=== PATIENT | female | born 1955 | race Caucasian/White ===

== ENCOUNTER → 2016-07-22 | Outpatient (CLI) | payer BC, MEDICARE ==
--- NOTE | 2016-07-22 11:03 | XR ---
EXAMINATION TYPE: XR chest 2V DATE OF EXAM: 07/22/2016 10:23 AM COMPARISON: NONE HISTORY: Productive cough for couple of weeks per patient. Upper respiratory infection per order TECHNIQUE: Frontal and lateral views of the chest are obtained. FINDINGS: There is suspicious right basilar opacity confirmed on 2 views. Left lung is clear. No ple ural effusion or pneumothorax is seen bilaterally. The cardiac silhouette size is within normal limit s. Some multilevel spurring in thoracic spine is present. IMPRESSION: Suspicious patchy right lower lobe infiltrate and/or atelectasis.
== END ==
LOC: LABWHC1 09:41
PROVIDERS: ATTEND Internal Medicine
DX: J06.9 Acute upper respiratory infection, unspecified (principal)
CPT/HCPCS: 36415; 71020; 93005

== ENCOUNTER → 2016-08-03 | Outpatient (CLI) | payer BC, MEDICARE ==
[2016-08-03 09:51] LABS: Basophils % (A) 1 %; CH 32.1; CHCM 33.5; Eosinophils # (A) 0.1 k/uL (0-0.7); Eosinophils % (A) 3 %; HCT 42.2 % (34.0-46.0); HDW 2.47; HGB 14.1 gm/dL (11.4-16.0); Luc # (Auto) 0.11; Luc % (Auto) 2; Lymphocytes # (A) 1.9 k/uL (1.0-4.8); Lymphocytes % (A) 34 %; MCH 32.1 pg (25.0-35.0); MCHC 33.3 g/dL (31.0-37.0); MCV 96.4 fL (80.0-100.0); Mean Platelet Volume 6.6; Monocytes # (A) 0.4 k/uL (0-1.0); Monocytes % (A) 7 %; Neutrophils % (A) 54 %; RBC 4.38 m/uL (3.80-5.40); RDW 12.8 % (11.5-15.5); WBC 5.6 k/uL (3.8-10.6); WBC (Perox) 5.59
[2016-08-03 10:16] LABS: ALT 40 U/L (9-52); AST 33 U/L (14-36); Alkaline Phosphatase 83 U/L (38-126); Anion Gap 5 mmol/L; Blood Urea Nitrogen 13 mg/dL (7-17); Carbon Dioxide 29 mmol/L (22-30); Chloride 107 mmol/L (98-107); Cholesterol 148 mg/dL (<200); Glucose 118 mg/dL (74-99); HDL Cholesterol 51 mg/dL (40-60); Non-African American GFR(MDRD) >60 (>60 ml/min/1.73 sqM); Potassium 4.8 mmol/L (3.5-5.1); Sodium 141 mmol/L (137-145); Total Bilirubin 0.6 mg/dL (0.2-1.3); Total Protein 7.5 g/dL (6.3-8.2); Triglycerides 100 mg/dL (<150)
== END | disposition home or self-care (01) ==
LOC: LABWHC1 09:13
PROVIDERS: ATTEND Internal Medicine
DX: E78.4 Other hyperlipidemia (principal); I10 Essential (primary) hypertension
CPT/HCPCS: 36415; 80053; 80061; 85025

== ENCOUNTER → 2016-08-22 | Outpatient (CLI) | payer BC, MEDICARE ==
--- NOTE | 2016-08-27 12:42 | MM ---
Reason for exam: additional evaluation requested from prior study. Last mammogram was performed 1 year and 5 months ago. History: Patient is postmenopausal. Reductions, March 2011. Physical Findings: Nurse did not find any significant physical abnormalities on exam. MG Diagnostic Mammo w CAD JASMINE Bilateral CC and MLO view(s) were taken. Prior study comparison: March 29, 2015, bilateral MG 3d diag mammo w/cad JASMINE. March 28, 2014, bilateral MG diagnostic mammo w CAD JASMINE. There are scattered fibroglandular densities. Stable benign calcifications. Reduction mammoplasty changes seen. No significant new findings when compared with previous films. These results were verbally communicated with the patient and result sheet given to the patient on 08/22/16. ASSESSMENT: Benign, BI-RAD 2 RECOMMENDATION: Routine screening mammogram of both breasts in 1 year.
== END | disposition home or self-care (01) ==
LOC: RADMAMWWP 15:22
PROVIDERS: ATTEND Internal Medicine
DX: Z09 Encounter for follow-up examination after completed treatment for conditions other than malignant neoplasm (principal); Z98.890 Other specified postprocedural states

== ENCOUNTER → 2017-02-07 | Outpatient (CLI) | payer BC, MEDICARE ==
[2017-02-07 10:27] LABS: Basophils % (A) 1 %; CH 32.2; CHCM 33.1; Eosinophils # (A) 0.1 k/uL (0-0.7); Eosinophils % (A) 2 %; HCT 43.8 % (34.0-46.0); HDW 2.42; HGB 14.2 gm/dL (11.4-16.0); Luc # (Auto) 0.08; Luc % (Auto) 1; Lymphocytes # (A) 1.7 k/uL (1.0-4.8); Lymphocytes % (A) 32 %; MCH 31.7 pg (25.0-35.0); MCHC 32.3 g/dL (31.0-37.0); MCV 97.9 fL (80.0-100.0); Mean Platelet Volume 7.2; Monocytes # (A) 0.3 k/uL (0-1.0); Monocytes % (A) 6 %; Neutrophils # (A) 3.2 k/uL (1.3-7.7); Neutrophils % (A) 58 %; RBC 4.47 m/uL (3.80-5.40); RDW 13.3 % (11.5-15.5); WBC 5.4 k/uL (3.8-10.6); WBC (Perox) 5.21
[2017-02-07 10:31] LABS: ALT 47 U/L (9-52); AST 30 U/L (14-36); Alkaline Phosphatase 76 U/L (38-126); Anion Gap 7 mmol/L; Blood Urea Nitrogen 13 mg/dL (7-17); Calcium 9.3 mg/dL (8.4-10.2); Carbon Dioxide 27 mmol/L (22-30); Chloride 107 mmol/L (98-107); Cholesterol 141 mg/dL (<200); Glucose 122 mg/dL (74-99); HDL Cholesterol 50 mg/dL (40-60); Non-African American GFR(MDRD) >60 (>60 ml/min/1.73 sqM); Sodium 141 mmol/L (137-145); Total Bilirubin 0.5 mg/dL (0.2-1.3); Total Protein 7.2 g/dL (6.3-8.2)
== END | disposition home or self-care (01) ==
LOC: LABWHC1 09:38
PROVIDERS: ATTEND Internal Medicine
DX: Z00.00 Encounter for general adult medical examination without abnormal findings (principal); E78.2 Mixed hyperlipidemia; I10 Essential (primary) hypertension; R53.83 Other fatigue
CPT/HCPCS: 36415; 80053; 80061; 84443; 85025

== ENCOUNTER → 2017-11-03 | Outpatient (CLI) | payer BC, MEDICARE ==
--- NOTE | 2017-11-04 08:50 | MM ---
Reason for exam: screening (asymptomatic). Last mammogram was performed 1 year and 2 months ago. History: Patient is postmenopausal. March 2011. Physical Findings: A clinical breast exam by your physician is recommended on an annual basis and results should be correlated with mammographic findings. MG 3D Screening Mammo W/Cad Bilateral CC and MLO view(s) were taken. Prior study comparison: August 22, 2016, bilateral MG diagnostic mammo w CAD JASMINE. March 29, 2015, bilateral MG 3d diag mammo w/cad JASMINE. The breast tissue is almost entirely fat. Benign stable calcifications. No significant changes when compared with prior studies. ASSESSMENT: Benign, BI-RAD 2 RECOMMENDATION: Routine screening mammogram of both breasts in 1 year.
== END | disposition home or self-care (01) ==
LOC: RADMAMWWP 16:25
PROVIDERS: ATTEND Internal Medicine
DX: Z12.31 Encounter for screening mammogram for malignant neoplasm of breast (principal)
CPT/HCPCS: 77063; 77067

== ENCOUNTER → 2018-02-07 | Outpatient (CLI) | payer BC, MEDICARE ==
[2018-02-07 10:52] LABS: Basophils % (A) 1 %; Eosinophils # (A) 0.1 k/uL (0-0.7); Eosinophils % (A) 2 %; HGB 14.7 gm/dL (11.4-16.0); Lymphocytes # (A) 1.8 k/uL (1.0-4.8); Lymphocytes % (A) 32 %; MCH 32.1 pg (25.0-35.0); MCHC 33.5 g/dL (31.0-37.0); Mean Platelet Volume 6.9; Monocytes # (A) 0.3 k/uL (0-1.0); Monocytes % (A) 6 %; Neutrophils # (A) 3.3 k/uL (1.3-7.7); Neutrophils % (A) 58 %; Platelet Count 173 k/uL (150-450); RBC 4.59 m/uL (3.80-5.40); RDW 13.1 % (11.5-15.5); WBC 5.6 k/uL (3.8-10.6)
[2018-02-07 16:56] LABS: Albumin/Globulin Ratio 1.29 (1.20-2.10); Anion Gap 5.5 mmol/L (4.00-12.00); Calcium 9.3 mg/dL (8.7-10.3); Carbon Dioxide 27.5 mmol/L (21.6-31.8); Globulin 3.1 g/dL (2.1-3.7); LDL Cholesterol,Calculated 79.8 mg/dL (0.0-131.0); Potassium 4.5 mmol/L (3.5-5.5); Total Bilirubin 0.5 mg/dL (0.3-1.2); Total Protein 7.1 g/dL (6.2-8.2); VLDL Calculation 18.2 mg/dL (5.00-40.00)
== END | disposition home or self-care (01) ==
LOC: LABWHC1 09:27
PROVIDERS: ATTEND Internal Medicine
DX: Z00.00 Encounter for general adult medical examination without abnormal findings (principal); I10 Essential (primary) hypertension; M85.80 Other specified disorders of bone density and structure, unspecified site
CPT/HCPCS: 36415; 80053; 80061; 82306; 85025

== ENCOUNTER → 2018-03-09 | Outpatient (CLI) | payer BC, MEDICARE ==
--- NOTE | 2018-03-09 22:47 | XR ---
EXAMINATION TYPE: XR chest 2V, XR ribs RT DATE OF EXAM: 03/09/2018 COMPARISON: Chest x-ray July 22, 2016 HISTORY: Chest and right-sided rib pain. TECHNIQUE: Frontal and lateral views of the chest are obtained. A final oblique images of the right- sided ribs are acquired. FINDINGS: Eventration of right hemidiaphragm is redemonstrated. Elevated left hemidiaphragm is noted. There is no focal air space opacity, pleural effusion, or pneumothorax seen. The cardiac silhouette size is upper limits of normal on current study. The osseous structures are intact. Dedicated images of right-sided ribs show no acute displaced right-sided rib fracture. The overlying soft tissue is unremarkable. IMPRESSION: 1. No acute cardiopulmonary process. 2. No acute displaced right-sided rib fractures are seen.
== END ==
LOC: RADXRMAIN 17:39
PROVIDERS: ATTEND Internal Medicine
DX: R07.9 Chest pain, unspecified (principal)
CPT/HCPCS: 71046

== ENCOUNTER → 2019-01-20 | Outpatient (CLI) | payer BC, MEDICARE ==
--- NOTE | 2019-01-21 12:09 | MM ---
Reason for exam: screening (asymptomatic). Last mammogram was performed 1 year and 3 months ago. History: Patient is postmenopausal. March 2011. Physical Findings: A clinical breast exam by your physician is recommended on an annual basis and results should be correlated with mammographic findings. MG 3D Screening Mammo W/Cad Bilateral CC and MLO view(s) were taken. XCCL view(s) were taken of the left breast. Prior study comparison: November 03, 2017, bilateral MG 3d screening mammo w/cad. August 22, 2016, bilateral MG diagnostic mammo w CAD JASMINE. The breast tissue is almost entirely fat. Benign appearing bilateral coarse calcifications. No significant changes when compared with prior studies. ASSESSMENT: Benign, BI-RAD 2 RECOMMENDATION: Routine screening mammogram of both breasts in 1 year.
== END | disposition home or self-care (01) ==
LOC: RADMAMWWP 16:23
PROVIDERS: ATTEND Internal Medicine
DX: Z12.31 Encounter for screening mammogram for malignant neoplasm of breast (principal)
CPT/HCPCS: 77063; 77067

== ENCOUNTER → 2019-10-11 | Outpatient (CLI) | payer BC, MEDICARE ==
--- NOTE | 2019-10-11 22:24 | XR ---
EXAMINATION TYPE: XR lumbosacral spine min 4V DATE OF EXAM: 10/11/2019 COMPARISON: 08/31/2014 HISTORY: M 53.4 below back pain TECHNIQUE: 5 view lumbar spine FINDINGS: There 5 lumbar-type vertebral bodies. Pedicles are intact. There is increasing spondylosis the lumbar spine. Facet degenerative changes are noted bilaterally. No spondylolytic defects are evid ent. There is loss of disc height L5-S1. Vertebral body alignment appears normal. Vertebral body heights a re preserved. IMPRESSION: 1. Degenerative disc change L5-S1. 2. Advancing spondylosis
--- NOTE | 2019-10-11 22:25 | XR ---
EXAMINATION TYPE: XR Hip Bilateral Complete DATE OF EXAM: 10/11/2019 COMPARISON: None HISTORY: Pain TECHNIQUE: Bilateral hips FINDINGS: Minimal narrowing of the joint space may be present. No acute fracture or dislocation is ev ident. IMPRESSION: 1. Mild bilateral hip joint space narrowing. 2. No acute osseous abnormality.
== END | disposition home or self-care (01) ==
LOC: RADXRMAIN 17:10
PROVIDERS: ATTEND Internal Medicine
DX: M51.37 Other intervertebral disc degeneration, lumbosacral region (principal); M47.896 Other spondylosis, lumbar region; M16.0 Bilateral primary osteoarthritis of hip
CPT/HCPCS: 72110; 73521

== ENCOUNTER → 2020-06-30 | Outpatient (CLI) | payer BC, MEDICARE ==
[2020-06-30 11:01] LABS: Basophils # (A) 0.1 k/uL (0-0.2); Basophils % (A) 1 %; Eosinophils # (A) 0.1 k/uL (0-0.7); Eosinophils % (A) 2 %; HCT 42.5 % (34.0-46.0); HGB 14.2 gm/dL (11.4-16.0); Lymphocytes # (A) 1.8 k/uL (1.0-4.8); Lymphocytes % (A) 28 %; MCH 31.7 pg (25.0-35.0); MCHC 33.4 g/dL (31.0-37.0); MCV 95.1 fL (80.0-100.0); Mean Platelet Volume 7.2; Monocytes # (A) 0.4 k/uL (0-1.0); Monocytes % (A) 6 %; Neutrophils % (A) 63 %; Platelet Count 219 k/uL (150-450); RBC 4.47 m/uL (3.80-5.40); RDW 13.2 % (11.5-15.5); WBC 6.4 k/uL (3.8-10.6)
[2020-06-30 13:06] LABS: ALT 17 U/L (4-34); AST 28 U/L (14-36); African American GFR (CKD) >90 (>60 ml/min/1.73 sqM); Albumin 3.8 g/dL (3.5-5.0); Alkaline Phosphatase 78 U/L (38-126); Anion Gap 5 mmol/L; Blood Urea Nitrogen 14 mg/dL (7-17); Calcium 9.7 mg/dL (8.4-10.2); Carbon Dioxide 31 mmol/L (22-30); Chloride 103 mmol/L (98-107); Cholesterol 168 mg/dL (<200); Globulin 3.7 g/dL; Glucose 156 mg/dL (74-99); HDL Cholesterol 48 mg/dL (40-60); LDL Cholesterol,Calculated 99 mg/dL (0-99); Non-African American GFR(CKD) >90 (>60 ml/min/1.73 sqM); Potassium 4.9 mmol/L (3.5-5.1); Sodium 139 mmol/L (137-145); Total Bilirubin 0.6 mg/dL (0.2-1.3); Total Protein 7.5 g/dL (6.3-8.2); Triglycerides 107 mg/dL (<150)
[2020-07-01 01:24] LABS: % Iron Saturation 30.54 (12.00-45.00)
== END | disposition home or self-care (01) ==
LOC: LABWHC1 09:43
PROVIDERS: ATTEND Nurse Practitioner Adult Health
DX: E78.5 Hyperlipidemia, unspecified (principal); K21.9 Gastro-esophageal reflux disease without esophagitis; I10 Essential (primary) hypertension; M54.5 Low back pain
CPT/HCPCS: 36415; 80053; 80061; 82306; 82607; 83540; 83550; 84443; 85025

== ENCOUNTER → 2020-09-12 | Outpatient (CLI) | payer BC, MEDICARE ==
--- NOTE | 2020-09-19 09:11 | MM ---
Reason for exam: screening (asymptomatic). Last mammogram was performed 1 year and 8 months ago. History: Patient is postmenopausal. March 2011. Physical Findings: A clinical breast exam by your physician is recommended on an annual basis and results should be correlated with mammographic findings. MG 3D Screening Mammo W/Cad Bilateral CC and MLO view(s) were taken. Prior study comparison: January 20, 2019, bilateral MG 3d screening mammo w/cad. November 03, 2017, bilateral MG 3d screening mammo w/cad. The breast tissue is almost entirely fat. Scattered benign dystrophic and fat necrosis calcifications. No significant changes when compared with prior studies. ASSESSMENT: Benign, BI-RAD 2 RECOMMENDATION: Routine screening mammogram of both breasts in 1 year.
== END | disposition home or self-care (01) ==
LOC: RADMAMWWP 16:06
PROVIDERS: ATTEND Internal Medicine
DX: Z12.31 Encounter for screening mammogram for malignant neoplasm of breast (principal); Z78.0 Asymptomatic menopausal state
CPT/HCPCS: 77063; 77067

== ENCOUNTER → 2021-10-10 | Outpatient (CLI) | payer MEDICARE, OTHER ==
--- NOTE | 2021-10-12 07:32 | MM ---
Reason for Exam: Screening (asymptomatic). Last mammogram was performed 1 year(s) and 1 month(s) ago. Patient History: Menarche at age 10. First Full-Term at age 18. Postmenopausal. 2004, Bilateral Reduction. 03/2011, Reduction. Risk Values: Catia 5 year model risk: 1.3%. NCI Lifetime model risk: 4.6%. Prior Study Comparison: 11/03/2017 Bilateral Screening Mammogram, [facility]. 01/20/2019 Bilateral Screening Mammogram, [facility]. 09/12/2020 Bilateral Screening Mammogram, [facility]. Tissue Density: The breast tissue is almost entirely fat. Findings: Analyzed By CAD. There is no suspicious group of microcalcifications or new suspicious mass in either breast. Scattered benign dystrophic and fat necrosis calcifications. Overall Assessment: Benign, BI-RAD 2 Management: Screening Mammogram of both breasts in 1 year. A clinical breast exam by your physician is recommended on an annual basis and results should be correlated with mammographic findings. Electronically signed and approved by: Michele Murillo D.O.
== END | disposition home or self-care (01) ==
LOC: RADMAMWWP 16:04
PROVIDERS: ATTEND Internal Medicine
DX: Z12.31 Encounter for screening mammogram for malignant neoplasm of breast (principal); Z78.0 Asymptomatic menopausal state
CPT/HCPCS: 77063; 77067

== ENCOUNTER 2022-10-27 08:34 | Inpatient (IN) | payer MEDICARE, OTHER ==
[2022-10-27] MEDS ORDERED: SODIUM CHLORIDE 0.9% 1,000 ML IV STA (08:40)
[2022-10-27 09:05] LABS: Basophils % (A) 0 %; Eosinophils # (A) 0.2 k/uL (0-0.7); Eosinophils % (A) 2 %; HCT 43.5 % (34.0-46.0); HGB 15.6 gm/dL (11.4-16.0); Lymphocytes # (A) 2.2 k/uL (1.0-4.8); Lymphocytes % (A) 20 %; MCH 34.1 pg (25.0-35.0); Monocytes # (A) 0.4 k/uL (0-1.0); Monocytes % (A) 4 %; Neutrophils # (A) 7.9 k/uL (1.3-7.7); Neutrophils % (A) 74 %; Platelet Count 173 k/uL (150-450); RBC 4.58 m/uL (3.80-5.40); RDW 13.1 % (11.5-15.5); WBC 10.7 k/uL (3.8-10.6)
--- NOTE | 2022-10-27 09:17 | ED ---
General Adult HPI - General Chief complaint: GI Bleed Stated complaint: Poss GI Bleed, N/V Time Seen by Provider: 10/27/22 08:34 Source: patient, EMS, RN notes reviewed Mode of arrival: EMS Limitations: no limitations - History of Present Illness Initial comments: 67-year-old female history of hypertension diabetes hyperlipidemia and Charcot Carmina tooth who presents with complaints of nausea vomiting for past 4 days which should become dark in color and her believes is coffee-ground color. EMS was called she was found to have a blood pressure 60 systolic. She did not initially get response from 500 mL of saline fluid bolus and was subseq uently given a dose of IV epinephrine. Patient's blood pressure did improve to 120/75 was brought here for further evaluation. She states she did have some upper abdominal pain but this has since improved. No diarrhea reported. No fevers chills or sweats. No prior history of GI bleeding no new medication. - Related Data Allergies Allergy/AdvReac Type Severity Reaction Status Date / Time No Known Allergies Allergy Verified 10/27/22 08:46 Review of Systems ROS Statement: Those systems with pertinent positive or pertinent negative responses have been documented in the HPI. ROS Other: All systems not noted in ROS Statement are negative. Past Medical History Past Medical History: Diabetes Mellitus, Hyperlipidemia, Hypertension Additional Past Medical History / Comment(s): CMT History of Any Multi-Drug Resistant Organisms: None Reported Past Surgical History: Orthopedic Surgery Additional Past Surgical History / Comment(s): DNC Past Psychological History: Depression Smoking Status: Never smoker Past Alcohol Use History: None Reported Past Drug Use History: None Reported General Exam - General Exam Comments Initial Comments: Is a well-developed well-nourished awake alert oriented 4 female Limitations: no limitations General appearance: alert, in no apparent distress Head exam: Present: atraumatic, normocephalic, normal inspection Eye exam: Present: normal appearance, PERRL, EOMI. Absent: scleral icterus, conjunctival injection, periorbital swelling ENT exam: Present: mucous membranes dry Neck exam: Present: normal inspection. Absent: tenderness, meningismus, lymphadenopathy Respiratory exam: Present: normal lung sounds bilaterally. Absent: respiratory distress, wheezes, rales, rhonchi, stridor Cardiovascular Exam: Present: regular rate, normal rhythm, normal heart sounds. Absent: systolic murmur, diastolic murmur, rubs, gallop, clicks GI/Abdominal exam: Present: soft, normal bowel sounds. Absent: distended, tende rness, guarding, rebound, rigid Extremities exam: Present: normal capillary refill, other (Atrophy of the lower extremity consistent with CMT). Absent: tenderness, pedal edema, joint swelling, calf tenderness Back exam: Present: normal inspection Neurological exam: Present: alert, oriented X3, CN II-XII intact Psychiatric exam: Present: normal affect, normal mood Skin exam: Present: warm, dry, intact, normal color. Absent: rash Course Vital Signs 10/27/22 08:36 Temperature 97.4 F L Pulse Rate 99 Respiratory 20 Rate Blood Pressure 105/78 O2 Sat by Pulse 97 Oximetry - Reevaluation(s) Reevaluation #1: 10/27/22 12:27 The patient's elevated lactic acid is likely secondary to viral depletion and poor perfusion has no infectious process is immediately identified Medical Decision Making - Medical Decision Making I did discuss findings with the patient family patient will be admitted for IV hydration and surgical consultation. I did discuss case with Dr. Forrester pt. sent in by a medical professional or institution (, PA, CASTINGS TRIMMER, urgent care, hospital, or care home...) When possible be specific @ -No Did you speak to anyone other than the patient for history (EMS, parent, family, police, friend...)? What history was obtained from this source @ -No Did you review nursing and triage notes (agree or disagree)? Why? @ -I reviewed and agree with nursing and triage notes Were old charts reviewed (outside hosp., previous admission, EMS record, old EKG, old radiological studies, urgent care reports/EKG's, care home records)? Report findings @ -No old charts were reviewed Differential Diagnosis (chest pain, altered mental status, abdominal pain women, abdominal pain men, vaginal bleeding, weakness, fever, dyspnea, syncope, headache, dizziness, GI bleed, back pain, seizure, CVA, palpatations, mental health, musculoskeletal)? @ -Gastroenteritis, abdominal pain, bowel obstruction EKG interpreted by me (3pts min.). @ -Not applicable X-rays interpreted by me (1pt min.). @ -Evidence of dilated bowel loop CT interpreted by me (1pt min.). @ -Evidence of early small bowel obstruction] U/S interpreted by me (1pt. min.). @ -None done What testing was considered but not performed or refused? (CT, X-rays, U/S, labs)? Why? @ -None What meds were considered but not given or refused? Why? @ -None Did you discuss the management of the patient with other professionals (professionals i.e. DrOlena, PA, CASTINGS TRIMMER, lab, RT, psych nurse, family welfare social work professor, equipment service engineer, teacher, textile technical officer, case worker)? Give summary @ -Dr. Chapa Was smoking cessation discussed for >3mins.? @ -No Was critical care preformed (if so, how long)? @ -No Were there social determinants of health that impacted care today? How? (Homelessness, low income, unemployed, alcoholism, drug addiction, transportation, low edu. Level, literacy, decrease access to med. care, prison, rehab)? @ -No Was there de-escalation of care discussed even if they declined (Discuss DNR or withdrawal of care, Hospice)? DNR status @ -No What co-morbidities impacted this encounter? (DM, HTN, Smoking, COPD, CAD, Cancer, CVA, ARF, Chemo, Hep., AIDS, mental health diagnosis, sleep apnea, morbid obesity)? @ -Diabetes, hypertension, [id number] Was patient admitted / discharged? Hospital course, mention meds given and route, prescriptions, significant lab abnormalities, going to OR and other pertinent info. @ -hospital course patient was admitted for IV hydration and surgical consultation Undiagnosed new problem with uncertain prognosis? @ -Early small bowel obstruction Drug Therapy requiring intensive monitoring for toxicity (Heparin, Nitro, Insulin, Cardizem)? @ -No Were any procedures done? @ -No Diagnosis/symptom? @ -Small bowel obstruction, intractable nausea vomiting, dehydration Acute, or Chronic, or Acute on Chronic? @ -Acute Uncomplicated (without systemic symptoms) or Complicated (systemic symptoms)? @ -Complicated Side effects of treatment? @ -No Exacerbation, Progression, or Severe Exacerbation? @ -No Poses a threat to life or bodily function? How? (Chest pain, [place], [place], pneumonia, PE, COPD, DKA, ARF, appy, cholecystitis, CVA, Diverticulitis, Homicidal, Suicidal, threat to staff... and all critical care pts) @ -S small bowel obstruction - Lab Data Result diagrams: 10/27/22 08:44 10/27/22 08:44 Lab Results 10/27/22 10/27/22 10/27/22 Range/Units 08:44 08:44 08:44 WBC 10.7 H (3.8-10.6) k/uL RBC 4.58 (3.80-5.40) m/uL Hgb 15.6 (11.4-16.0) gm/dL Hct 43.5 (34.0-46.0) % MCV 95.0 (80.0-100.0) fL MCH 34.1 (25.0-35.0) pg MCHC 36.0 (31.0-37.0) g/dL RDW 13.1 (11.5-15.5) % Plt Count 173 (150-450) k/uL MPV 8.0 Neutrophils % 74 % Lymphocytes % 20 % Monocytes % 4 % Eosinophils % 2 % Basophils % 0 % Neutrophils # 7.9 H (1.3-7.7) k/uL Lymphocytes # 2.2 (1.0-4.8) k/uL Monocytes # 0.4 (0-1.0) k/uL Eosinophils # 0.2 (0-0.7) k/uL Basophils # 0.0 (0-0.2) k/uL PT (9.0-12.0) sec INR (<1.2) APTT (22.0-30.0) sec Sodium 138 (137-145) mmol/L Potassium 4.5 (3.5-5.1) mmol/L Chloride 102 (98-107) mmol/L Carbon Dioxide 23 (22-30) mmol/L Anion Gap 13 mmol/L BUN 16 (7-17) mg/dL Creatinine 0.64 (0.52-1.04) mg/dL Est GFR (CKD-EPI)AfAm >90 (>60 ml/min/1.73 sqM) Est GFR (CKD-EPI)NonAf >90 (>60 ml/min/1.73 sqM) Glucose 141 H (74-99) mg/dL Lactic Ac Sepsis Rflx Plasma Lactic Acid Bam 3.4 H* (0.7-2.0) mmol/L Calcium 9.4 (8.4-10.2) mg/dL Magnesium 1.9 (1.6-2.3) mg/dL Total Bilirubin 1.2 (0.2-1.3) mg/dL AST 34 (14-36) U/L ALT 21 (4-34) U/L Alkaline Phosphatase 77 (38-126) U/L Creatine Kinase 68 (30-135) U/L Total Protein 8.5 H (6.3-8.2) g/dL Albumin 4.1 (3.5-5.0) g/dL Lipase 57 (23-300) U/L Blood Type Blood Type Confirm Blood Type Recheck Bld Type Recheck Status Antibody Screen Spec Expiration Date 10/27/22 10/27/22 10/27/22 Range/Units 09:19 09:20 09:25 WBC (3.8-10.6) k/uL RBC (3.80-5.40) m/uL Hgb (11.4-16.0) gm/dL Hct (34.0-46.0) % MCV (80.0-100.0) fL MCH (25.0-35.0) pg MCHC (31.0-37.0) g/dL RDW (11.5-15.5) % Plt Count (150-450) k/uL MPV Neutrophils % % Lymphocytes % % Monocytes % % Eosinophils % % Basophils % % Neutrophils # (1.3-7.7) k/uL Lymphocytes # (1.0-4.8) k/uL Monocytes # (0-1.0) k/uL Eosinophils # (0-0.7) k/uL Basophils # (0-0.2) k/uL PT (9.0-12.0) sec INR (<1.2) APTT (22.0-30.0) sec Sodium (137-145) mmol/L Potassium (3.5-5.1) mmol/L Chloride (98-107) mmol/L Carbon Dioxide (22-30) mmol/L Anion Gap mmol/L BUN (7-17) mg/dL Creatinine (0.52-1.04) mg/dL Est GFR (CKD-EPI)AfAm (>60 ml/min/1.73 sqM) Est GFR (CKD-EPI)NonAf (>60 ml/min/1.73 sqM) Glucose (74-99) mg/dL Lactic Ac Sepsis Rflx Y Plasma Lactic Acid Bam (0.7-2.0) mmol/L Calcium (8.4-10.2) mg/dL Magnesium (1.6-2.3) mg/dL Total Bilirubin (0.2-1.3) mg/dL AST (14-36) U/L ALT (4-34) U/L Alkaline Phosphatase (38-126) U/L Creatine Kinase (30-135) U/L Total Protein (6.3-8.2) g/dL Albumin (3.5-5.0) g/dL Lipase (23-300) U/L Blood Type A Positive Blood Type Confirm A Positive Blood Type Recheck No Previous Record Bld Type Recheck Status CABO Indicated Antibody Screen NEGATIVE Spec Expiration Date 10/30/2022 - 231910/27/22 Range/Units 09:26 WBC (3.8-10.6) k/uL RBC (3.80-5.40) m/uL Hgb (11.4-16.0) gm/dL Hct (34.0-46.0) % MCV (80.0-100.0) fL MCH (25.0-35.0) pg MCHC (31.0-37.0) g/dL RDW (11.5-15.5) % Plt Count (150-450) k/uL MPV Neutrophils % % Lymphocytes % % Monocytes % % Eosinophils % % Basophils % % Neutrophils # (1.3-7.7) k/uL Lymphocytes # (1.0-4.8) k/uL Monocytes # (0-1.0) k/uL Eosinophils # (0-0.7) k/uL Basophils # (0-0.2) k/uL PT 11.5 (9.0-12.0) sec INR 1.1 (<1.2) APTT 25.2 (22.0-30.0) sec Sodium (137-145) mmol/L Potassium (3.5-5.1) mmol/L Chloride (98-107) mmol/L Carbon Dioxide (22-30) mmol/L Anion Gap mmol/L BUN (7-17) mg/dL Creatinine (0.52-1.04) mg/dL Est GFR (CKD-EPI)AfAm (>60 ml/min/1.73 sqM) Est GFR (CKD-EPI)NonAf (>60 ml/min/1.73 sqM) Glucose (74-99) mg/dL Lactic Ac Sepsis Rflx Plasma Lactic Acid Bam (0.7-2.0) mmol/L Calcium (8.4-10.2) mg/dL Magnesium (1.6-2.3) mg/dL Total Bilirubin (0.2-1.3) mg/dL AST (14-36) U/L ALT (4-34) U/L Alkaline Phosphatase (38-126) U/L Creatine Kinase (30-135) U/L Total Protein (6.3-8.2) g/dL Albumin (3.5-5.0) g/dL Lipase (23-300) U/L Blood Type Blood Type Confirm Blood Type Recheck Bld Type Recheck Status Antibody Screen Spec Expiration Date - Radiology Data Interpreted by me: I did interpret the imaging KUB showed evidence of dilated bowel loops CT abdomen and pelvis showed evidence of early small bowel obstruction dilated bowel loops Disposition Clinical Impression: Small bowel obstruction, Elevated lactic acid level, Dehydration, Intractable nausea and vomiting Disposition: ADMITTED IP TO THIS [facility] Condition: Fair Referrals: Alfred Hamm MD [Primary Care Provider] - 1-2 days Decision Date: 10/27/22 Decision Time: 12:28
[2022-10-27 09:19] LABS: ALT 21 U/L (4-34); AST 34 U/L (14-36); African American GFR (CKD) >90 (>60 ml/min/1.73 sqM); Albumin 4.1 g/dL (3.5-5.0); Alkaline Phosphatase 77 U/L (38-126); Anion Gap 13 mmol/L; Blood Urea Nitrogen 16 mg/dL (7-17); Calcium 9.4 mg/dL (8.4-10.2); Carbon Dioxide 23 mmol/L (22-30); Chloride 102 mmol/L (98-107); Creatine Kinase 68 U/L (30-135); Glucose 141 mg/dL (74-99); Lipase 57 U/L (23-300); Magnesium 1.9 mg/dL (1.6-2.3); Non-African American GFR(CKD) >90 (>60 ml/min/1.73 sqM); Sodium 138 mmol/L (137-145); Total Bilirubin 1.2 mg/dL (0.2-1.3); Total Protein 8.5 g/dL (6.3-8.2)
[2022-10-27 09:21] LABS: Potassium 4.5 mmol/L (3.5-5.1)
--- NOTE | 2022-10-27 09:36 | XR ---
EXAMINATION TYPE: XR KUB DATE OF EXAM: 10/27/2022 9:08 AM INDICATION: Patient age:Female; 67 years old; Reason for study: pain; COMPARISON: None. TECHNIQUE: One radiographic view of the abdomen was obtained. FINDINGS/IMPRESSION: Gaseous dilation of multiple loops of small bowel measuring up to 3.9 cm. Correlate for ileus versus bowel obstruction.
[2022-10-27 09:56] LABS: INR 1.1 (<1.2); Partial Thromboplastin Time 25.2 sec (22.0-30.0); Prothrombin Time 11.5 sec (9.0-12.0)
--- NOTE | 2022-10-27 10:14 | CT ---
EXAMINATION TYPE: CT abdomen pelvis w con CT DLP: 1457.8 mGycm, Automated exposure control for dose reduction was used. DATE OF EXAM: 10/27/2022 10:02 AM COMPARISON: None. CLINICAL INDICATION:Female, 67 years old with history of Abdominal pain, acute, nonlocalized; abd angelika n TECHNIQUE: Axial CT of the abdomen and pelvis. Sagittal and coronal reformats were created on a [employer] workstation. Contrast used:100 mL of Isovue 300 with IV Contrast, (none if empty) Oral contrast used: without Oral Contrast (none if empty) FINDINGS: LOWER CHEST: Unremarkable ABDOMEN LIVER: Unremarkable GALLBLADDER AND BILE DUCTS: Unremarkable. PANCREAS: Unremarkable. SPLEEN: Unremarkable. ADRENAL GLANDS: Unremarkable. KIDNEYS AND URETERS: No evidence of hydronephrosis or renal calculus. The ureters are unremarkable. PELVIS BLADDER: Unremarkable REPRODUCTIVE: Unremarkable. ABDOMEN & PELVIS STOMACH AND BOWEL: Multiple stacking small bowel loops are seen throughout the abdomen the largest me asuring up to 3.4 cm in diameter. Transition point felt to be in the left abdomen where the terminal ileum is relatively nondistended. Series 202 image 32. Stool is seen within the colon. Small hiatal h ernia. PERITONEUM/RETROPERITONEUM: No evidence of pneumoperitoneum or free fluid. VASCULATURE: No evidence of aortic aneurysm. MUSCULOSKELETAL: No acute osseous abnormalities LYMPH NODES: No gross evidence for lymphadenopathy. SOFT TISSUE/ABDOMINAL WALL: Unremarkable IMPRESSION: 1. Suspected early small bowel obstruction with transition point in the left abdomen. Internal herni a not entirely excluded. Consider dedicated small bowel follow-through to rule out complete obstructi on. 2. Colonic diverticulosis. 3. Small hiatal hernia.
[2022-10-27] MEDS ORDERED: FAMOTIDINE 20 MG/2 ML VIAL IV STA (12:17)
[2022-10-27] MEDS ORDERED: ONDANSETRON 4 MG/2 ML VIAL IVP PRN ×2 (12:28→17:48)
[2022-10-27] MEDS ORDERED: NALOXONE 0.4 MG/ML 1 ML VIAL IV PRN (12:28)
[2022-10-27] MEDS: SODIUM CHLORIDE 0.9% 1,000 ML IV SCH ×2 (12:32→21:04)
[2022-10-27 12:55] LABS: Appearance,Urine Clear (Clear); Bilirubin,Urine Negative (Negative); Blood,Urine Negative (Negative); Color,Urine Yellow; Glucose,Urine (UA) Negative (Negative); Ketones,Urine Trace (Negative); Protein,Urine Trace (Negative); Specific Gravity,Urine <1.005 (1.001-1.035)
[2022-10-27 12:56] LABS: Leukocyte Esterase,Urine Negative (Negative); Nitrite,Urine Negative (Negative)
--- NOTE | 2022-10-27 15:52 | P.HPIM ---
History of Present Illness H&P Date: 10/27/22 Patient is a 67-year-old female with history of Trcdibn-Qarma-Uydxv presenting with nausea and vomiting. He started evening, has not had any bowel movements since then. Still passing flatus. She claims that she had a couple bouts of emesis, noted coffee-ground emesis this morning. Has generalized abdominal pain. Denies any fevers, chills, recent travel history. [place] mbulatory at baseline, uses a wheelchair. Has a history of prior abdominal surgeries, related to . In the ED, temperature was 97.4, pulse 99, respiratory rate 20, blood pressure 105/78, saturating at 97% on room air. Laboratory workup showed WBC 10.7, hemoglobin 15.6, sodium 138, potassium 4.5, creatinine 0.64, lactate 3.4, glucose 141. Lipase 57. KUB showed gaseous dilation of multiple loops of small bowel measuring up to 3.[address] abdomen and pelvis showed early small bowel obstruction with transition point in the left abdomen, internal hernia not entirely excluded, colonic diverticulosis, small hiatal hernia. Patient admitted for small bowel obstruction with surgery consult. Pertinent positives and negatives as discussed in HPI, a complete review of systems was performed and all other systems are negative. Patient seen and examined at bedside. Vital signs reviewed General: nontoxic, no distress, appears at stated age Derm: warm, dry Head: atraumatic, normocephalic, symmetric Eyes: EOMI, no lid lag, anicteric sclera, pupils equal round reactive to light ENT: Nose and ears atraumatic Neck: No thyromegaly, supple Mouth: no lip lesion, mucus membranes moist Cardiovascular: S1S2 reg, no murmur, no edema Lungs: clear to auscultation bilateral, no rhonchi, no rales, no wheeze, no accessory muscle use Abdominal: soft, nontender to palpation, no guarding, no appreciable organomegaly Ext: no gross muscle atrophy, muscle strength muscle strength 5 out of 5 in all 4 extremities, no contractures Neuro: CN II-XII grossly intact Psych: Alert, oriented, appropriate affect Assessment/Plan: Small bowel obstruction Coffee-ground emesis Lactic acidosis Leukocytosis, reactive Hx of Charcot shaylee tooth HLD -SBO likely in the setting of internal hernia, surgery consulted -Coffee-ground emesis likely in the setting of multiple bouts of vomiting, gastritis, esophagitis, Paulina-Mullins tear not excluded -Protonix 40 IV twice a day -Continue IV fluids normal saline 1 30 mL an hour -Repeat lactate -Zofran as needed for nausea and vomiting -Home medications will be reviewed and reconciled when available. The patient is admitted with an anticipated greater than 2 midnight stay as inpatient status for evaluation of all bowel obstruction. Surrogate decision-maker: CODE STATUS: Full code DVT prophylaxis: Subcu heparin Anticipated discharge date: Pending clinical course Anticipated discharge place: Pending clinical course A total of 65 minutes was spent on the care of this complex patient more than 50% of the time was spent in counseling and care coordination. Past Medical History Past Medical History: Diabetes Mellitus, Hyperlipidemia, Hypertension Additional Past Medical History / Comment(s): CMT History of Any Multi-Drug Resistant Organisms: None Reported Past Surgical History: Orthopedic Surgery Additional Past Surgical History / Comment(s): DNC Past Anesthesia/Blood Transfusion Reactions: No Reported Reaction Past Psychological History: Depression Smoking Status: Never smoker Past Alcohol Use History: None Reported Past Drug Use History: None Reported - Past Family History Father History Unknown: Yes Mother History Unknown: Yes Medications and Allergies Allergies Allergy/AdvReac Type Severity Reaction Status Date / Time No Known Allergies Allergy Verified 10/27/22 08:46 Physical Exam Vitals: Vital Signs Temp Pulse Pulse Resp BP BP Pulse Ox 10/27/22 14:39 97.9 F 91 16 94/81 96 10/27/22 13:16 97.1 F L 85 18 125/89 97 10/27/22 12:00 78 18 145/68 98 10/27/22 08:36 97.4 F L 99 20 105/78 97 Intake and Output 10/27/22 10/27/22 10/27/22 06:59 14:59 22:59 Other: Weight 61.235 kg Results CBC & Chem 7: 10/27/22 08:44 10/27/22 08:44 Labs: Abnormal Lab Results - Last 24 Hours (Table) 10/27/22 10/27/22 10/27/22 Range/Units 08:44 08:44 08:44 WBC 10.7 H (3.8-10.6) k/uL Neutrophils # 7.9 H (1.3-7.7) k/uL Glucose 141 H (74-99) mg/dL Plasma Lactic Acid Bam (0.7-2.0) mmol/L Total Protein 8.5 H (6.3-8.2) g/dL Urine pH 9.0 H (5.0-8.0) 10/27/22 Range/Units 08:44 WBC (3.8-10.6) k/uL Neutrophils # (1.3-7.7) k/uL Glucose (74-99) mg/dL Plasma Lactic Acid Bam 3.4 H* (0.7-2.0) mmol/L Total Protein (6.3-8.2) g/dL Urine pH (5.0-8.0) Thrombosis Risk Factor Assmnt - Choose All That Apply Each Risk Factor Represents 2 Points: Age 61-74 years Thrombosis Risk Factor Assessment Total Risk Factor Score: 2 Thrombosis Risk Factor Assessment Level: Low Risk
[2022-10-27] MEDS: PANTOPRAZOLE 40 MG/10 ML VIAL IV SCH (21:03)
[2022-10-28] MEDS: SODIUM CHLORIDE 0.9% 1,000 ML IV SCH ×3 (01:36→18:10)
[2022-10-28 08:46] LABS: Basophils # (A) 0.03 X 10*3/uL (0.00-0.10); Basophils % (A) 0.4 %; Eosinophils % (A) 1.3 %; HCT 40.3 % (37.2-46.3); HGB 13.4 d/dL (12.0-15.0); Lymphocytes # (A) 2.38 X 10*3/uL (0.90-5.00); Lymphocytes % (A) 30.4 %; MCH 32.7 pg (27.0-32.0); MCHC 33.3 d/dL (32.0-37.0); MCV 98.3 FL (80.0-97.0); Mean Platelet Volume 10.3 FL (9.5-12.2); Monocytes # (A) 0.56 X 10*3/uL (0.20-1.00); Monocytes % (A) 7.1 %; NRBC Per 100 WBC 0 X 10*3/uL (0.00-0.01); Neutrophils # (A) 4.75 X 10*3/uL (1.80-7.70); Neutrophils % (A) 60.5 %; Platelet Count 152 X 10*3/uL (140-440); RDW 13.5 % (11.5-14.5); WBC 7.84 X 10*3/uL (4.50-10.00)
[2022-10-28] MEDS ORDERED: PANTOPRAZOLE 40 MG/10 ML VIAL IV SCH (09:00)
[2022-10-28] MEDS: PANTOPRAZOLE 40 MG/10 ML VIAL IV SCH ×2 (09:01→20:55)
[2022-10-28 14:03] LABS: BUN/Creat Ratio 19.86 Ratio (12.00-20.00); Blood Urea Nitrogen 13.9 mg/dL (9.0-27.0); Calcium 8.6 mg/dL (8.7-10.3); Carbon Dioxide 21.1 mmol/L (21.6-31.8); Chloride 107 mmol/L (96-109); Glucose 94 mg/dL (70-110); Potassium 3.7 mmol/L (3.5-5.5); Sodium 141 mmol/L (135-145)
--- NOTE | 2022-10-28 14:04 | P.GSCN ---
History of Present Illness Consult date: 10/28/22 History of present illness: CHIEF COMPLAINT: Nausea and vomiting HISTORY OF PRESENT ILLNESS: This is a 67-year-old female who presented to the hospital with nausea vomiting and upper abdominal pain 3 days. The emesis was dark in color concerns for coffee-ground emesis. Last episode of vomiting was yesterday in the ER. Since then further vomiting or nausea. Abdominal pain has resolved. She is having flatus. Last bowel movement was on . She does have a known history of constipation. Past surgical history does include a D&C. Computed tomography scan abdomen and pelvis suspected early small bowel obstruction with transition point in the left abdomen. Internal hernia not entirely excluded. Consider dedicated small bowel follow-through to rule out complete obstruction. Colonic diverticulosis. Small hiatal hernia. Patient reports that she is feeling better. PAST MEDICAL HISTORY: See below PAST SURGICAL HISTORY: See below MEDICATIONS: See below ALLERGIES: See below SOCIAL HISTORY: No illicit drug use. REVIEW OF SYSTEMS: CONSTITUTIONAL: Denies fever or chills. HEENT: Denies blurred vision, vision changes, or eye pain. Denies hemoptysis CARDIOVASCULAR: Denies chest pain or pressure. RESPIRATORY: No shortness of breath. GASTROINTESTINAL: See HPI for pertinent findings HEMATOLOGIC: Denies bleeding disorders. GENITOURINARY: Denies any blood in urine or increased urinary frequency. SKIN: Denies pruitis. Denies rash. PHYSICAL EXAM: VITAL SIGNS: Reviewed GENERAL: Well-developed in no acute distress. ABDOMEN: Soft. Nondistended. Nontender NEUROLOGIC: Alert and oriented. Cranial nerves II through XII grossly intact. LABORATORY DATA: WBC 7.4 HgB 13.4 platelets 152 Sodium 138 potassium 4.5 creatinine 0.64 Lactic acid 3.4-0.9 Urinalysis negative for infection IMAGING: Computed tomography scan as stated above ASSESSMENT: 1. Early small bowel obstruction PLAN: -Start patient on sips of clear liquids -Small bowel follow-through with Gastrografin ordered for morning -Continue supportive care Physician French Binder note has been reviewed by physician. Signing provider agrees with the documented findings, assessment, and plan of care. I have personally seen and examined the patient, reviewed the SOCIAL MEDIA MARKETING ANALYST /PAs history, exam and MDM and agree with the assessment and plan as written. Based on total visit time, I have performed more than 50% of the visit. As above: CAT scan reviewed. Patient does have subtle findings to suggest possible transition point. She feels well. She thinks it was a viral illness. That is still likely the case. Will check small bowel series tomorrow. Continue liquid diet. Past Medical History Past Medical History: Diabetes Mellitus, Hyperlipidemia, Hypertension Additional Past Medical History / Comment(s): CMT History of Any Multi-Drug Resistant Organisms: None Reported Past Surgical History: Orthopedic Surgery Additional Past Surgical History / Comment(s): DNC Past Anesthesia/Blood Transfusion Reactions: No Reported Reaction Past Psychological History: Depression Smoking Status: Never smoker Past Alcohol Use History: None Reported Past Drug Use History: None Reported - Past Family History Father History Unknown: Yes Mother History Unknown: Yes Medications and Allergies Home Medications Medication Instructions Recorded Confirmed Type Aspirin EC [Ecotrin Low Dose] 81 mg PO DAILY 10/27/22 10/27/22 History Cholecalciferol [Vitamin D3 (25 25 mcg PO DAILY 10/27/22 10/27/22 History Mcg = 1000 Iu)] Gabapentin [Neurontin] 200 mg PO HS 10/27/22 10/27/22 History Loperamide [Imodium] 2 mg PO DAILY 10/27/22 10/27/22 History Nortriptyline [Pamelor] 50 mg PO HS 10/27/22 10/27/22 History Oxybutynin Xl [Ditropan XL] 5 mg PO DAILY 10/27/22 10/27/22 History Sertraline [Zoloft] 50 mg PO DAILY 10/27/22 10/27/22 History Simvastatin [Zocor] 20 mg PO DAILY 10/27/22 10/27/22 History Allergies Allergy/AdvReac Type Severity Reaction Status Date / Time No Known Allergies Allergy Verified 10/27/22 16:52 Surgical - Exam Vital Signs Temp Pulse Resp BP Pulse Ox 97.4 F L 99 20 105/78 97 10/27/22 08:36 10/27/22 08:36 10/27/22 08:36 10/27/22 08:36 10/27/22 08:36 Results - Labs 10/28/22 06:32 10/28/22 06:32 Abnormal Lab Results - Last 24 Hours (Table) 10/27/22 10/28/22 Range/Units 08:44 06:32 MCV 98.3 H (80.0-97.0) FL MCH 32.7 H (27.0-32.0) pg Urine pH 9.0 H (5.0-8.0)
--- NOTE | 2022-10-28 15:13 | P.PN ---
Subjective Progress Note Date: 10/28/22 Hospital Course: 67-year-old female with history of Xmhsvgi-Lxxbf-Xngoc presenting with nausea and vomiting. In the ED, temperature was 97.4, pulse 99, respiratory rate 20, blood pressure 105/78, saturating at 97% on room air. Laboratory workup showed WBC 10.7, hemoglobin 15.6, sodium 138, potassium 4.5, creatinine 0.64, lactate 3.4, glucose 141. Lipase 57. KUB showed gaseous dilation of multiple loops of small bowel measuring up to 3.[address] abdomen and pelvis showed early small bowel obstruction with transition point in the left abdomen, internal hernia not entirely excluded, colonic diverticulosis, small hiatal hernia. Patient admitted for small bowel obstruction with surgery consult. Small bowel follow through pending. Subjective: Patient seen and examined at bedside. Nausea is improved. Abdominal pain very minimal. Passing flatus. No bowel movements. Pertinent positives and negatives as discussed above, a complete review of systems was performed and all other systems are negative. Vitals Signs Reviewed. General: [nontoxic], [no distress], [appears at stated age] Derm: [warm], [dry] Head: [atraumatic], [normocephalic], [symmetric] Eyes: [EOMI], [no lid lag], [anicteric sclera] Mouth: [no lip lesion], [mucus membranes moist] Cardiovascular: [S1S2 reg], [no murmur] Lungs: [CTA bilateral], [no rhonchi, no rales] , [no accessory muscle use] Abdominal: [soft], [ nontender to palpation], [no guarding], [no appreciable organomegaly] Ext: [no gross muscle atrophy], [no edema], [no contractures] Neuro: [ CN II-XI grossly intact], [no focal neuro deficits] Psych: [Alert], [oriented], [appropriate affect] Data Reviewed Today: Pertinent Labs: WBC 7.8 over, sodium 141, potassium 3.1, creatinine 0.7 Imaging: No new imaging Assessment and Plan: Small bowel obstruction Coffee-ground emesis Lactic acidosis, resolved Leukocytosis, reactive Hx of Charcot shaylee tooth HLD -Surgery note reviewed, small bowel follow-through tomorrow -Coffee-ground emesis likely in the setting of multiple bouts of vomiting, gastritis, esophagitis, Paulina-Mullins tear not excluded -Protonix 40 IV twice a day -Continue IV fluids normal saline 1 30 mL an hour -Zofran as needed for nausea and vomiting -Home medications restarted DVT ppx: SCDs Code status: Full Code Anticipated discharge place: home Anticipated discharge time: pending clinical course Objective - Vital Signs Vital signs: Vital Signs Temp 97.6 F 10/28/22 11:13 Pulse 66 10/28/22 11:13 Resp 18 10/28/22 11:13 BP 138/75 10/28/22 11:13 Pulse Ox 98 10/28/22 11:13 FiO2 Intake & Output 10/27/22 10/28/22 10/28/22 18:59 06:59 18:59 Intake Total 0 200 Output Total 325 Balance 0 -125 Weight 61.235 kg Intake: Oral 0 200 Output: Urine 250 Post Void Residual 75 Other: Voiding Method External Catheter # Voids 1 - Labs CBC & Chem 7: 10/28/22 06:32 10/28/22 06:32 Labs: Abnormal Lab Results - Last 24 Hours (Table) 10/28/22 10/28/22 Range/Units 06:32 06:32 MCV 98.3 H (80.0-97.0) FL MCH 32.7 H (27.0-32.0) pg Carbon Dioxide 21.1 L (21.6-31.8) mmol/L Anion Gap 12.90 H (4.00-12.00) mmol/L Calcium 8.6 L (8.7-10.3) mg/dL
[2022-10-28] MEDS: NORTRIPTYLINE 25 MG CAP PO SCH (20:55)
[2022-10-28] MEDS: GABAPENTIN 100 MG CAP PO SCH (20:55)
[2022-10-29] MEDS: SODIUM CHLORIDE 0.9% 1,000 ML IV SCH ×3 (06:07→16:45)
[2022-10-29] MEDS: CHOLECALCIFEROL 25 MCG (1000 IU) TABLET PO SCH (10:50)
[2022-10-29] MEDS: OXYBUTYNIN XL 5 MG TAB.ER.24 PO SCH (10:50)
[2022-10-29] MEDS: ATORVASTATIN 10 MG TAB PO SCH (10:50)
[2022-10-29] MEDS: ASPIRIN 81 MG PO SCH (10:50)
[2022-10-29] MEDS: SERTRALINE 50 MG TAB PO SCH (10:50)
[2022-10-29] MEDS: PANTOPRAZOLE 40 MG/10 ML VIAL IV SCH (10:51)
--- NOTE | 2022-10-29 14:13 | P.PN ---
Subjective Progress Note Date: 10/29/22 Patient is a 67-year-old female with Jgbblme-Tlieg-Gwisl, DM, HTN, and HLD who presented with nausea and vomiting. In the ED, her vitals were unremarkable. Her laboratory analysis was remarkable for WBC 10.7, lactate 3.4, and glucose 141. KUB demonstrated gaseous dilation of multiple loops of small bowel measuring up to 3.[address] abdomen and pelvis showed early small bowel obstruction with transition point in the left abdomen, internal hernia not entirely excluded, colonic diverticulosis, small hiatal hernia. Patient was admitted for small bowel obstruction and surgery consult. Small bowel follow through is currently pending. Patient seen and examined at bedside with significant other present. She denies any abdominal pain. She denies any nausea or vomiting. She is tolerating her clear liquid diet. She is passing flatus but has not had a bowel movement. Vital signs reviewed General: nontoxic, no distress, appears at stated age Cardiovascular: S1S2 reg, no murmur, positive posterior tibial pulse bilateral, Lungs: CTA bilateral, no rhonchi, no rales , no accessory muscle use Abdominal: soft, nontender to palpation, no guarding, no appreciable organomegaly Ext: no gross muscle atrophy, no edema b/l lower extremities, no contractures Neuro: CN II-XI grossly intact, no focal neuro deficits Psych: Alert, oriented, appropriate affect Assessment/Plan: Partial small bowel obstruction -Await small bowel follow-through -Await further surgical recommendations -Continue with clear liquid diet Diabetes mellitus type 2 -Diet controlled -Follow blood sugars a.m. and fasting on 10/28 was 94 Dyslipidemia -Continue with Lipitor 10 mg daily, resume simvastatin 20 mg daily at discharge Imaging: None new for review Data Review: T-max last 24 hours 97.5. Vitals reviewed from this morning pulse 65, respirations 16, blood pressure 142/76, O2 sat 100% on room air DVT prophylaxis: SCDS Anticipated discharge date: Pending Clinical Consult Anticipated discharge place: Pending Clinical Consult This dictation was prepared using [employer] voice recognition software. Though every attempt is made to correct errors during dictation some may still exist. Objective - Vital Signs Vital signs: Vital Signs Temp 97.5 F L 10/29/22 11:25 Pulse 65 10/29/22 11:25 Resp 16 10/29/22 11:25 BP 142/76 10/29/22 11:25 Pulse Ox 100 10/29/22 11:25 FiO2 Intake & Output 10/28/22 10/29/22 10/29/22 18:59 06:59 18:59 Intake Total 1840 Output Total 250 Balance 1590 Intake: Intake, IV Titration 1300 Amount Sodium Chloride 0.9% 1, 1300 000 ml @ 130 mls/hr IV . Q7H42M [facility] Rx#:[id number] Oral 540 Output: Urine 250 Other: Voiding Method Bedpan # Voids 1 7 1 - Labs CBC & Chem 7: 10/28/22 06:32 10/28/22 06:32
--- NOTE | 2022-10-29 15:02 | P.PN ---
Subjective Progress Note Date: 10/29/22 CHIEF COMPLAINT: Early small bowel obstruction HISTORY OF PRESENT ILLNESS: Patient denies any abdominal pain. She is having flatus. No bowel movement since . Denies any nausea or vomiting. She was able tolerate sips of clear liquids yesterday. She had a small bowel follow-through today. Results are pending. Afebrile. No new labs PHYSICAL EXAM: VITAL SIGNS: Reviewed. GENERAL: Well-developed in no acute distress. ABDOMEN: Soft. Nondistended. Nontender. NEUROLOGIC: Alert and oriented. Cranial nerves II through XII grossly intact. ASSESSMENT: 1. Early small bowel obstruction PLAN: -Follow up on small bowel follow-through results -Continue clear liquids -Continue supportive care Physician Seed Collector note has been reviewed by physician. Signing provider agrees with the documented findings, assessment, and plan of care. I have personally seen and examined the patient, reviewed the FLASK MAKER /PAs history, exam and MDM and agree with the assessment and plan as written. Based on total visit time, I have performed more than 50% of the visit. As above: Patient feels well. Small bowel series shows possible mild low-grade obstruction versus ileus. No transition point seen. Advance diet. May discharge tomorrow tolerates. May leave IV out. Objective - Vital Signs Vital signs: Vital Signs Temp 97.5 F L 10/29/22 11:25 Pulse 65 10/29/22 11:25 Resp 16 10/29/22 11:25 BP 142/76 10/29/22 11:25 Pulse Ox 100 10/29/22 11:25 FiO2 Intake & Output 10/28/22 10/29/22 10/29/22 18:59 06:59 18:59 Intake Total 1840 Output Total 250 Balance 1590 Intake: Intake, IV Titration 1300 Amount Sodium Chloride 0.9% 1, 1300 000 ml @ 130 mls/hr IV . Q7H42M [facility] Rx#:[id number] Oral 540 Output: Urine 250 Other: Voiding Method Bedpan # Voids 1 7 1 - Labs CBC & Chem 7: 10/28/22 06:32 10/28/22 06:32
--- NOTE | 2022-10-29 15:03 | FL ---
INDICATION: Patient age:Female; 67 years old; Reason for study: Follow up on SBO, abdominal pain; PHH. COMPARISON: CT abdomen pelvis 10/27/2022, KUB radiograph 10/27/2022 TECHNIQUE: The procedure was explained and patient history elicited. All patient questions were ans wered prior to start of procedure. A field marketing director radiograph of the abdomen was also reviewed. The patient was asked to ingest liquid Gastrografinand incremental frontal abdominal radiographs were then taken until contrast was visualized in the cecum. Radiographs taken: 5 FINDINGS: The field marketing director abdominal radiograph demonstrates paucity of small bowel gas with stool and gas demonstrate d throughout the colon and rectum. . No abnormal calcifications. The visualized osseous structures ar e intact. Contrast is seen extending from the duodenojejunal junction into the cecum after 135 minutes, which i s within the expected time period. The proximal small bowel in the left abdomen is again dilated deejay suring up to 3.9 cm. The remaining small bowel appears normal caliber. The small bowel follows normal distribution without any evidence of extraluminal or intraluminal irregularity. There is no displac ement of bowel loops or extraluminal extravasation of contrast material. Small bowel mucosal folds ar e felt to be within normal limits. IMPRESSION: Dilated proximal small bowel with contrast demonstrated within the colon within 135 minutes which is within normal limits. Findings suggest low-grade small bowel obstruction versus ileus.
[2022-10-29] MEDS: GABAPENTIN 100 MG CAP PO SCH (22:30)
[2022-10-29] MEDS: NORTRIPTYLINE 25 MG CAP PO SCH (22:30)
[2022-10-29] MEDS ORDERED: PANTOPRAZOLE 40 MG TABLET PO STA (22:34)
[2022-10-30] MEDS: PANTOPRAZOLE 40 MG/10 ML VIAL IV SCH (07:43)
[2022-10-30 08:47] LABS: HCT 41.2 % (37.2-46.3); HGB 13.6 d/dL (12.0-15.0); MCH 32.6 pg (27.0-32.0); MCV 98.8 FL (80.0-97.0); Mean Platelet Volume 10.1 FL (9.5-12.2); NRBC Per 100 WBC 0 X 10*3/uL (0.00-0.01); Platelet Count 144 X 10*3/uL (140-440); RBC 4.17 X 10*6/uL (4.10-5.20); RDW 13.5 % (11.5-14.5); WBC 5.99 X 10*3/uL (4.50-10.00)
[2022-10-30 08:53] LABS: Blood Urea Nitrogen 4.7 mg/dL (9.0-27.0); Calcium 8.9 mg/dL (8.7-10.3); Carbon Dioxide 25.9 mmol/L (21.6-31.8); Chloride 106 mmol/L (96-109); Glucose 85 mg/dL (70-110); Potassium 3.7 mmol/L (3.5-5.5); Sodium 143 mmol/L (135-145)
[2022-10-30] MEDS: SERTRALINE 50 MG TAB PO SCH (08:56)
[2022-10-30] MEDS: ASPIRIN 81 MG PO SCH (08:56)
[2022-10-30] MEDS: OXYBUTYNIN XL 5 MG TAB.ER.24 PO SCH (08:56)
[2022-10-30] MEDS: ATORVASTATIN 10 MG TAB PO SCH (08:56)
[2022-10-30] MEDS: CHOLECALCIFEROL 25 MCG (1000 IU) TABLET PO SCH (08:56)
[2022-10-30 09:19] VITALS: BP 98/67; PULSE 80; RESP 18; TEMP 97.4
--- NOTE | 2022-10-30 14:53 | P.DS ---
Providers Date of admission: 10/27/22 12:29 Expected date of discharge: 10/30/22 Attending physician: Darwin Chapa MD Consults: 10/27/22 12:28 Consult Physician Routine Consulting Provider: Kei Hopkins Consult Reason/Comments: Early small bowel obstruction Do you want consulting provider notified?: Already Contacted Primary care physician: Alfred Hamm MD Hospital Course: Discharge Diagnosis: Partial small bowel obstruction Diabetes mellitus type 2 Dyslipidemia Hospital Course: Patient is a 67-year-old female with Rynldif-Imutz-Hdejy, DM, HTN, and HLD who presented with nausea and vomiting. In the ED, her vitals were unremarkable. Her laboratory analysis was remarkable for WBC 10.7, lactate 3.4, and glucose 141. KUB demonstrated gaseous dilation of multiple loops of small bowel measuring up to 3.[address] abdomen and pelvis showed early small bowel obstruction with transition point in the left abdomen, internal hernia not entirely excluded, colonic diverticulosis, small hiatal hernia. Patient was admitted for small bowel obstruction and surgery consult. Small bowel follow through demonstrated an contrast within the colon part possible small bowel obstruction. Patient began having multiple bowel movements. She was tolerating her diet. Her abdominal pain resolved. She was determined stable for discharge home. Follow-up: Dr. Hamm on 11/05 at 1 PM. Recommend patient stay off of Imodium and ensuring that she has a bowel movement every 48 hours instructed to take MiraLAX and Dulcolax as needed Patient seen and examined at bedside. She is doing well. Tolerated her diet. Had multiple bowel movements. No other complaints currently. Vital signs reviewed and stable. General: nontoxic, no distress, appears at stated age Cardiovascular: S1S2 reg, no murmur, positive posterior tibial pulse bilateral, Lungs: CTA bilateral, no rhonchi, no rales , no accessory muscle use Abdominal: soft, nontender to palpation, no guarding, no appreciable organomegaly Ext: no gross muscle atrophy, no edema b/l lower extremities, no contractures Neuro: CN II-XI grossly intact, no focal neuro deficits Psych: Alert, oriented, appropriate affect A total of 32 minutes of time were spent preparing this complex discharge summary. Patient was discharged on 10/30/22. This dictation was prepared using [employer] voice recognition software. Though every attempt is made to correct errors during dictation some may still exist. Patient Condition at Discharge: Fair Plan - Discharge Summary Discharge Rx Participant: No New Discharge Prescriptions: Continue Cholecalciferol [Vitamin D3 (25 Mcg = 1000 Iu)] 25 mcg PO DAILY Simvastatin [Zocor] 20 mg PO DAILY Sertraline [Zoloft] 50 mg PO DAILY Oxybutynin Xl [Ditropan XL] 5 mg PO DAILY Gabapentin [Neurontin] 200 mg PO HS Aspirin EC [Ecotrin Low Dose] 81 mg PO DAILY Nortriptyline [Pamelor] 50 mg PO HS Discontinued Loperamide [Imodium] 2 mg PO DAILY Discharge Medication List Aspirin EC [Ecotrin Low Dose] 81 mg PO DAILY 10/27/22 [History] Cholecalciferol [Vitamin D3 (25 Mcg = 1000 Iu)] 25 mcg PO DAILY 10/27/22 [History] Gabapentin [Neurontin] 200 mg PO HS 10/27/22 [History] Nortriptyline [Pamelor] 50 mg PO HS 10/27/22 [History] Oxybutynin Xl [Ditropan XL] 5 mg PO DAILY 10/27/22 [History] Sertraline [Zoloft] 50 mg PO DAILY 10/27/22 [History] Simvastatin [Zocor] 20 mg PO DAILY 10/27/22 [History] Follow up Appointment(s)/Referral(s): Alfred Hamm MD [Primary Care Provider] - 11/05/22 1:00 pm Activity/Diet/Wound Care/Special Instructions: Activity: As tolerated Diet: High fiber Special Instructions: If no bowel movement in 24 hours you can take over the counter MiraLax or Dulcolax as directed on the back of the box/bottle. Discharge Disposition: HOME SELF-CARE
--- NOTE | 2022-10-30 15:31 | P.PN ---
Subjective Progress Note Date: 10/30/22 CHIEF COMPLAINT: Early small bowel obstruction HISTORY OF PRESENT ILLNESS: Patient seen and examined this morning. She denied any abdominal pain she tolerated a low fiber diet. She did have a bowel movem ent and flatus. Denies any nausea or vomiting. Scheduled for discharge today. PHYSICAL EXAM: VITAL SIGNS: Reviewed. GENERAL: Well-developed in no acute distress. ABDOMEN: Soft. Nondistended. Nontender. NEUROLOGIC: Alert and oriented. Cranial nerves II through XII grossly intact. ASSESSMENT: 1. Early small bowel obstruction resolved PLAN: -Patient is tolerating diet and having bowel movements. She is stable for discharge. Physician Athletics Teacher note has been reviewed by physician. Signing provider agrees with the documented findings, assessment, and plan of care. Objective - Vital Signs Vital signs: Vital Signs Temp 97.4 F L 10/30/22 08:10 Pulse 80 10/30/22 08:10 Resp 18 10/30/22 08:10 BP 98/67 10/30/22 08:10 Pulse Ox 99 10/30/22 08:10 FiO2 Intake & Output 10/29/22 10/30/22 10/30/22 18:59 06:59 18:59 Other: Voiding Method Bedpan Diaper # Voids 1 2 1 # Bowel Movements 1 3 1 - Labs CBC & Chem 7: 10/30/22 05:33 10/30/22 05:33 Labs: Abnormal Lab Results - Last 24 Hours (Table) 10/30/22 10/30/22 Range/Units 05:33 05:33 MCV 98.8 H (80.0-97.0) FL MCH 32.6 H (27.0-32.0) pg BUN 4.7 L (9.0-27.0) mg/dL Creatinine 0.5 L (0.6-1.5) mg/dL BUN/Creatinine Ratio 9.40 L (12.00-20.00) Ratio
== END 2022-10-30 13:10 | disposition home or self-care (01) | DRG 389 ==
LOC: EC 08:34 → 5NMEDONC 12:29
PROVIDERS: ADMIT Student in an Organized Health Care Education/Training Program; ATTEND Student in an Organized Health Care Education/Training Program
DX: K56.600 Partial intestinal obstruction, unspecified as to cause (principal); E87.20 Acidosis, unspecified; K92.0 Hematemesis; K44.9 Diaphragmatic hernia without obstruction or gangrene; E78.5 Hyperlipidemia, unspecified; E86.0 Dehydration; F32.A Depression, unspecified; G60.0 Hereditary motor and sensory neuropathy; I10 Essential (primary) hypertension; Z79.82 Long term (current) use of aspirin; Z79.899 Other long term (current) drug therapy; Z99.3 Dependence on wheelchair; K57.90 Diverticulosis of intestine, part unspecified, without perforation or abscess without bleeding; D72.829 Elevated white blood cell count, unspecified
CPT/HCPCS: 36415; 74018; 74177; 74250; 80048; 80053; 81003; 82550; 83605; 83690; 83735; 85025; 85027; 85610; 85730; 86850; 86900; 86901; 96361; 96374; 96375; 99285

== ENCOUNTER → 2022-11-27 | Outpatient (CLI) | payer MEDICARE, OTHER ==
--- NOTE | 2022-11-28 08:48 | MM ---
Reason for Exam: Screening (asymptomatic). Last mammogram was performed 1 year(s) and 1 month(s) ago. Patient History: Menarche at age 10. First Full-Term at age 18. Postmenopausal. 2004, Bilateral Reduction. 03/2011, Reduction. Risk Values: Catia 5 year model risk: 1.4%. NCI Lifetime model risk: 4.4%. Prior Study Comparison: 01/20/2019 Bilateral Screening Mammogram, [facility]. 09/12/2020 Bilateral Screening Mammogram, [facility]. 10/10/2021 Bilateral MG 3D screening mammo w/cad, [facility]. Tissue Density: The breast tissue is almost entirely fat. Findings: Analyzed By CAD. There is no suspicious group of microcalcifications or new suspicious mass in either breast. Benign-appearing calcifications bilaterally. Overall Assessment: Benign, BI-RAD 2 Management: Screening Mammogram of both breasts in [address] [facility] will attempt to contact patient to return for supplemental views and ultrasound if indicated. Patient should continue monthly self-breast exams. A clinical breast exam by your physician is recommended on an annual basis. This exam should not preclude additional follow-up of suspicious palpable abnormalities. Note on Catia scores and lifetime risk: 1. A Catia score greater than 3% is considered moderate risk. If this is the case, consider specialist referral to assess eligibility for a risk reducing agent. 2. If overall lifetime risk for the development of breast cancer is 20% or higher, the patient may qualify for future screening with alternating mammogram and breast MRI. Electronically signed and approved by: Prashant Venegas DO
== END | disposition home or self-care (01) ==
LOC: RADMAMWWP 14:39
PROVIDERS: ATTEND Internal Medicine
DX: Z12.31 Encounter for screening mammogram for malignant neoplasm of breast (principal); Z78.0 Asymptomatic menopausal state
CPT/HCPCS: 77063; 77067

== ENCOUNTER → 2023-04-30 | Outpatient (CLI) | payer MEDICARE ==
[2023-04-30 16:44] LABS: Albumin 3.8 g/dL (3.8-4.9); Protein, Total 7.2 g/dL (6.2-8.2)
[2023-05-01 16:48] LABS: Gamma Globulin 1.99 g/dL (0.70-1.50)
== END | disposition home or self-care (01) ==
LOC: LABWHC1 12:22
PROVIDERS: ATTEND Internal Medicine
DX: R77.1 Abnormality of globulin (principal)
CPT/HCPCS: 36415; 84165; 86334

== ENCOUNTER → 2023-12-05 | Outpatient (CLI) | payer MEDICARE, OTHER ==
--- NOTE | 2023-12-07 11:44 | MM ---
Reason for Exam: Screening (asymptomatic). Last mammogram was performed 1 year(s) and 1 month(s) ago. Patient History: Menarche at age 10. First Full-Term at age 18. Postmenopausal. 2004, Bilateral Reduction. 03/2011, Reduction. Risk Values: Catia 5 year model risk: 1.4%. NCI Lifetime model risk: 4.2%. Prior Study Comparison: 08/22/2016 Bilateral Diagnostic Mammogram, [facility]. 11/03/2017 Bilateral Screening Mammogram, [facility]. 01/20/2019 Bilateral Screening Mammogram, [facility]. 09/12/2020 Bilateral Screening Mammogram, [facility]. 10/10/2021 Bilateral MG 3D screening mammo w/cad, [facility]. 11/27/2022 Bilateral MG 3D screening mammo w/cad, [facility]. Tissue Density: The breasts are almost entirely fatty. Findings: Analyzed By CAD. Right breast: There is no suspicious group of microcalcifications or new suspicious mass. Left breast: There is no suspicious group of microcalcifications or new suspicious mass. Overall Assessment: Negative, BI-RAD 1 Management: Screening Mammogram of both breasts in [address] [facility] will attempt to contact patient to return for supplemental views and ultrasound if indicated. Patient should continue monthly self-breast exams. A clinical breast exam by your physician is recommended on an annual basis. This exam should not preclude additional follow-up of suspicious palpable abnormalities. Note on Catia scores and lifetime risk: 1. A Catia score greater than 3% is considered moderate risk. If this is the case, consider specialist referral to assess eligibility for a risk reducing agent. 2. If overall lifetime risk for the development of breast cancer is 20% or higher, the patient may qualify for future screening with alternating mammogram and breast MRI. Electronically signed and approved by: Prashant Venegas DO
== END | disposition home or self-care (01) ==
LOC: RADMAMWWP 10:09
PROVIDERS: ATTEND Internal Medicine
DX: Z12.31 Encounter for screening mammogram for malignant neoplasm of breast
CPT/HCPCS: 77067